=== PATIENT | male | born 1985 | race Caucasian/White ===

== ENCOUNTER 2018-10-07 00:15 | Emergency (ER) | payer SELFPAY ==
[2018-10-07 00:35] VITALS: BMI 29.1
[2018-10-07] MEDS ORDERED: TYLENOL W/CODEI1 TAB PO (01:40)
[2018-10-07] MEDS ORDERED: PENICILLIN V P500 MG PO (01:40)
[2018-10-07 02:30] VITALS: BP 115/76
== END 2018-10-07 02:26 | disposition home or self-care (01) ==
LOC: D.ER 00:15
DX: K02.9 Dental caries, unspecified (principal); S02.5XXA Fracture of tooth (traumatic), initial encounter for closed fracture; X58.XXXA Exposure to other specified factors, initial encounter; Y93.89 Activity, other specified; Y92.89 Other specified places as the place of occurrence of the external cause; K04.7 Periapical abscess without sinus